=== PATIENT | female | born 1995 | race Caucasian/White ===

== ENCOUNTER 2022-09-26 12:00 | Emergency (ER) | payer OTHER ==
[~2022-09-26] VITALS: Ht 172.7 cm; Wt 83.1 kg
[2022-09-26] MEDS ORDERED: LIDOCAINE 1% INJ 10 ML VIAL INJ STA (12:13)
--- NOTE | 2022-09-26 12:14 | ED Upper Extremity ---
General Chief Complaint: Laceration Stated Complaint: LT FINGER LAC Source: patient History of Present Illness Date Seen by Provider: Sep 26, 2022 Time Seen by Provider: 12:09 Initial Comments 26-year-old female presenting with complaints of laceration to her left index finger. She is right-hand dominant. She was at work when this happened. She was using a box repairer and it slipped and cut into her left index finger. The cut is on the DIP joint on the flexor surface. She has normal sensation and movement. Bleeding is controlled with pressure. No other injuries. She states her last tetanus shot was more than 5 years. Location Injury Occurred: work Onset: just prior to arrival Severity: mild Pain/Injury Location: left 2nd finger Method of Injury: incised Modifying Factors: Worse With Movement Allergies and Home Medications Allergies Coded Allergies: No Known Drug Allergies (Unverified , 09/26/22) Patient Home Medication List Home Medication List Reviewed: Yes Review of Systems Constitutional: No chills, No fever EENTM: no symptoms reported Respiratory: no symptoms reported Cardiovascular: no symptoms reported Genitourinary: no symptoms reported Musculoskeletal: see HPI Skin: see HPI Psychiatric/Neurological: Denies Numbness, Denies Paresthesia Past Ftdmesx-[id number]-Xkftwm Hx Patient Social History Tobacco Use?: No Physical Exam Vital Signs Vital Signs - First Documented 09/26/22 12:06 Temp 36.7 Pulse 86 Resp 16 B/P (MAP) 133/72 (92) O2 Delivery Room Air Capillary Refill : Height, Weight, BMI Height: '" Weight: lbs. oz. kg; BMI Method: General Appearance: WD/WN, no apparent distress Cardiovascular: normal peripheral pulses Hand: normal ROM, laceration (Flexor surface of the left DIP joint) Neurologic/Tendon: normal sensation, normal motor functions, normal tendon functions Neurologic/Psychiatric: no motor/sensory deficits, alert, oriented x 3 Skin: normal color, warm/dry Procedures/Interventions Wound Location: Upper Extremities (left index finger) Wound Length (cm): 1.1 Wound's Depth, Shape: linear, sub Q Wound Explored: clean Anesthesia: 1% Lidocaine Volume Anesthetic (ccs): 3 Suture: Ethlion Suture Size: 4-0 Number of Sutures: 3 Sterile Dressing Applied?: Yes Progress After obtaining verbal consent from the patient the wound was cleaned with chlorhexidine scrub soap and water. She had been soaking in this solution after her initial exam. Then using Betadine scrub soap and sterile water the wound wa s scrubbed prior to placing stitches. A total of 3.5 mL of 1% plain lidocaine were infiltrated in a digital ring block fashion. 4-0 Ethilon suture was used to place 3 simple interrupted stitches to approximate the wound edges. Wound edges were well approximated and patient continued to have normal range of motion. Counseled on management and follow-up and return precautions. Advised to have the stitches out in 10 to 14 days. Follow-up with her employer for the concerns of work comp. Progress/Results/Core Measures Results/Orders My Orders Orders - FLO MALDONADO MD Dipht,Pertrommel(Acell),Tet Adult (Boostrix (09/26/22 12:15) Lidocaine 1% Inj 10 Ml (Xylocaine 1% Inj (09/26/22 12:13) Suture Set At Bedside (09/26/22 12:13) Wound Dressing-Ed (09/26/22 12:13) Lidocaine 1% Inj 20 Ml (Xylocaine 1% Inj (09/26/22 12:23) Medications Given in ED Current Medications Medications Dose Ordered Sig/Amador Route Start Time Stop Time Status Last Admin Dose Admin Diphtheria/ Tetanus/Acell Pertussis 0.5 ml ONCE ONCE IM 09/26/22 12:15 09/26/22 12:16 DC 09/26/22 12:26 0.5 ML Lidocaine HCl 20 ml STK-MED ONCE .ROUTE 09/26/22 12:23 09/26/22 12:26 DC 09/26/22 12:27 20 ML Vital Signs/I&O 09/26/22 12:06 Temp 36.7 Pulse 86 Resp 16 B/P (MAP) 133/72 (92) O2 Delivery Room Air Progress Progress Note : Progress Note Wound was cleaned and soaked in chlorhexidine scrub soap and sterile water. Patient was verbally consented to have stitches to repair the laceration. She tolerated procedure well without any immediate complication. Counseled on follow-up and return precautions. Given a handout about the stitches as well as work comp care. Departure Impression Primary Impression: Laceration of left index finger w/o foreign body w/o damage to nail Qualified Codes: S61.211A - Laceration without foreign body of left index finger without damage to nail, initial encounter Disposition: 01 HOME, SELF-CARE Condition: Stable Departure-Patient Inst. Decision time for Depature: 13:14 Referrals: NO,LOCAL PHYSICIAN (PCP/Family) Primary Care Physician Patient Instructions: Laceration Repair With Stitches ED, Wound Care ED Add. Discharge Instructions: Keep wound clean and dry for the first 24 hours. After that may apply antibiotic ointment and keep the wound covered if it might get dirty. Change the dressing as needed if the dressing gets dirty but at least change it twice a day. After the first 24 hours you could wash the hand and finger normally but do not soak it. Try to keep your hand and finger elevated above heart level to help with pain and swelling. May apply ice 10 to 15 minutes every few hours if needed for pain and swelling. If you see signs of infection such as redness streaking up your finger and hand, fever over 101 Fahrenheit, pus draining from the wound then you should be seen sooner. Follow-up with your employer for any possible work comp coverage and treatment. The stitches can be removed anywhere between October 08 and October 10. All discharge instructions reviewed with patient and/or family. Voiced und erstanding. FLO MALDONADO MD Sep 26, 2022 12:14
[2022-09-26] MEDS ORDERED: TETANUS,DIPTH,PERTUSS P/F (BOOSTRIX) 0.5 ML VIAL IM ONE (12:15)
[2022-09-26] MEDS ORDERED: LIDOCAINE 1% INJ 20 ML VIAL ONE (12:23)
[2022-09-26 13:23] VITALS: BP 127/69
== END 2022-09-26 13:23 | disposition home or self-care (01) ==
LOC: ER FS 12:03
DX: S61.211A Laceration without foreign body of left index finger without damage to nail, initial encounter (principal); Z23 Encounter for immunization; Z28.310 Unvaccinated for COVID-19; W26.0XXA Contact with knife, initial encounter; Y92.59 Other trade areas as the place of occurrence of the external cause; Y99.0 Civilian activity done for income or pay
CPT/HCPCS: 12001; 90715